=== PATIENT | female | born 1940 | race Caucasian/White ===

== ENCOUNTER 2017-06-11 10:00 | Outpatient (CLI) | payer OTHER ==
[~2017-06-11 10:00] MED LIST: AMLODIPINE BESY10 MG PO; ASPIRIN EC81 MG PO; BUPROPION HCL150 M3 PO; CALCIUM/VITAMI600 MG PO; DIOVAN320 MG PO; DIOVAN40 MG PO; FLUOXETINE HCL20 MG PO; FUROSEMIDE20 MG PO; LIPITOR10 MG PO; LIPITOR40 MG PO; MAGNESIUM400 M1 PO; MELATONIN10 MG PO; MULTIPLE VITAMIN PO; PRILOSEC10 MG; RIVASTIGMINE TAR6 MG PO; VITAMIN B121000 CR PO; VITAMIN D-31000 UNIT PO; WARFARIN SODIUM5 MG PO
--- NOTE | 2017-06-11 11:53 | DIAGNOSTIC IMAGING REPORT ---
PROCEDURE: MR LUMBAR SPINE W/O CONTRAST INDICATION: Back pain with bilateral leg weakness and tingling. TECHNIQUE: Noncontrast T1, T2, and STIR sagittal images. T1 and T2 axial images. COMPARISON: Lumbar spine MRI 06/24/2016. FINDINGS: Minor levoscoliosis. Normal alignment without fracture or suspicious osseous lesion. Moderate L2-3 disc space narrowing with endplate reactive bone marrow edema, unchanged. Stable moderate L4-5 disc space narrowing with endplate fatty changes and reactive bone marrow edema, unchanged. Desiccation of the L3-4 L5-S1 discs. Normal conus. Paraspinal soft tissues are unremarkable. L1-2: Normal appearance. L2-3: Moderate broad-based disc bulge/spur complex with mild facet arthropathy with mild bilateral foraminal stenosis, unchanged. No spinal stenosis. L3-4: Moderate left foraminal disc herniation/spur complex and mild facet arthropathy. No change in mild left foraminal stenosis. No spinal stenosis. L4-5: Mild right foraminal disc protrusion/spur complex superimposed on a broad-based disc bulge with mild facet arthropathy and thickening of the ligament flava. Stable mild to moderate right foraminal stenosis. No spinal stenosis. L5-S1: Small left foraminal disc bulge and mild facet arthropathy. Stable mild left foraminal stenosis. No spinal stenosis. IMPRESSION: 1. Moderate to severe degenerative changes with multilevel disc bulging and no significant interval change 2. L2-3 disc bulge with mild bilateral foraminal stenosis 3. L3-4 left foraminal disc herniation with mild left foraminal stenosis 4. L4-5 right foraminal disc protrusion with mild to moderate right foraminal stenosis 5. Pelvis with left foraminal disc protrusion with mild left foraminal stenosis
== END 2017-06-11 23:00 ==
LOC: MRI SRH 10:00
DX: Z85.3 Personal history of malignant neoplasm of breast (principal); M51.36 Other intervertebral disc degeneration, lumbar region; M51.37 Other intervertebral disc degeneration, lumbosacral region; M51.26 Other intervertebral disc displacement, lumbar region; M48.06 Spinal stenosis, lumbar region